=== PATIENT | female | born 1945 | race Caucasian/White ===

== ENCOUNTER 2019-02-26 07:05 | Day surgery (SDC) | payer OTHER, BC ==
--- OUTSIDE RECORDS SUMMARY | 2019-02-26 07:08 | XMS REPORT ---
:1945 Author Organization [facility] Address [address] [place] [address] [address] [address] Care Team Providers Name Role Phone Sridhar Whiteside Unavailable Unavailable Problems This patient has no known problems. Allergies, Adverse Reactions, Alerts This patient has no known allergies or adverse reactions. Medications This patient has no known medications. Encounters Start End Encounter Admission Attending Care Care Encounter Date/Time Date/Time Type Type Clinicians Facility Department ID 2019-02-05 2019-02-05 Outpatient RAVIN Whiteside [id number] 13:16:00 13:16:00 Sridhar
--- OUTSIDE RECORDS SUMMARY | 2019-02-26 07:08 | XMS REPORT | Clinical Summary ---
:1945 Author Organization [facility] Address [address] [place] [address] Care Team Providers Name Role Phone Adam Hilton MD Primary Care Provider Allergies No Known Allergies Medications Medication Sig Dispensed Refills Start Date End Date Status raloxifene (EVISTA) 0 01/11/2017 Active 60 mg tablet omega-3 acid ethyl 0 01/09/2017 Active esters (LOVAZA) 1 gram capsule SYNTHROID 50 mcg 0 10/19/2016 Active tablet ZETIA 10 mg tablet 0 10/19/2016 Active escitalopram 0 01/09/2017 Active (LEXAPRO) 10 MG tablet metoprolol tartrate Take 25 mg by 0 Active (LOPRESSOR) 50 mg mouth daily. tablet pantoprazole Take 1 tablet 90 tablet 3 05/30/2018 05/30/2019 Active (PROTONIX) 40 MG EC (40 mg total) tablet by mouth daily. pantoprazole Take 40 mg by 0 03/23/2018 Discontinued (PROTONIX) 40 MG EC mouth daily. tablet pantoprazole TAKE ONE (1) 90 tablet 03/23/2018 05/30/2018 Discontinued (PROTONIX) 40 MG EC TABLET(S) BY tablet MOUTH EVERY MORNING. pantoprazole Take 1 tablet 30 tablet 2 03/23/2018 05/26/2018 (PROTONIX) 40 MG EC (40 mg total) tablet by mouth daily for 64 days. Active Problems Problem Noted Date Colon polyp GERD (gastroesophageal reflux disease) HH (hiatus hernia) Gastritis Esophageal ulcer Diverticulosis Encounters Date Type Specialty Care Team Description 05/30/2018 Office Visit Gastroenterology Nik Dumont HH (hiatus hernia ) (Primary Dx); MD Maxime Polyp of colon, unspecified part of colon, unspecified type; Diverticulosis of large intestine without hemorrhage; Ulcer of esophagus without bleeding; Gastroesophageal reflux disease with esophagitis; Other chronic gastritis with hemorrhage 05/05/2018 Documentation Gastroenterology Beverly Mejias MA 03/23/2018 Orders Only Gastroenterology Beverly Mejias MA 03/23/2018 Documentation Gastroenterology Beverly Mejias MA 03/22/2018 Refill Gastroenterology Nik Dumont MD after 02/25/2018 Family History Relation Name Status Comments Father Mother Social History Tobacco Use Types Packs/Day Years Used Date Never Smoker Smokeless Tobacco: Never Used Alcohol Use Drinks/Week oz/Week Comments Yes Sex Assigned at Date Recorded Not on file Job Start Date Occupation Industry Not on file Not on file Not on file Travel History Travel Start Travel End No recent travel history available. Last Filed Vital Signs Vital Sign Reading Time Taken Blood Pressure 160/94 05/30/2018 1:14 PM CDT Pulse 60 05/30/2018 1:14 PM CDT Temperature 36.4 C (97.5 F) 05/30/2018 1:14 PM CDT Respiratory Rate - - Oxygen Saturation - - Inhaled Oxygen Concentration - - Weight 59.4 kg (131 lb) 05/30/2018 1:14 PM CDT Height - - Body Mass Index 22.49 05/30/2018 1:14 PM CDT Plan of Treatment Health Maintenance Due Date Last Done Comments BREAST CANCER SCREENING 1994 COLON CANCER SCREENING 1994 SHINGLES VACCINES (#1) 1994 65+ PNEUMOCOCCAL VACCINE (1 of 2 - PCV13) 2009 PNEUMOCOCCAL POLYSACCHARIDE VACCINE AGE 65 AND OVER 2009 INFLUENZA VACCINE 06/07/2019 Results Not on fileafter 02/25/2018 Insurance Payer Benefit Plan / Group Subscriber ID Type Phone Address MEDICARE MEDICARE PART A AND B xxxxxxxxxx Medicare [place], [place] BCBS BCBS CHOICE PPO/[employer]ER[employer] EMPL PPO xxxxxxxxxxxx PPO Advance Directives Patient has advance care planning documents on file. For more information, please contact:Kj [id number] [place] [address]
[2019-02-26] MEDS ORDERED: LIDOCAINE 1% MPF 30 ML VIAL ONE (07:36)
[2019-02-26] MEDS ORDERED: NA CHLORIDE 0.9% 500 ML ONE (07:36)
[2019-02-26] MEDS: PHENYLEPHRINE 10% OPTH 5ML ONE ×3 (07:43→08:03)
[2019-02-26] MEDS: CYCLOPENTOLATE 1% OPTH 2 ML ONE ×3 (07:43→08:03)
[2019-02-26] MEDS ORDERED: DUOVISC 1 KIT OPTH ONE (08:14)
[2019-02-26] MEDS ORDERED: BALANCED SALT IRRIG PLAIN 500 ML BTL IRR ONE (08:14)
[2019-02-26] MEDS ORDERED: EPINEPHRINE/PF 1 MG/ML AMP ONE (08:14)
[2019-02-26] MEDS ORDERED: NS 0.9% VIAL 10 ML ONE (08:14)
[2019-02-26] MEDS ORDERED: MOXIFLOXACIN HCL 10 DROPS/ML **OR USE OPTH ONE (08:14)
[2019-02-26] MEDS: TETRACAINE HCL 0.5% 4ML OPTH ONE ×2 (08:38→09:06)
[2019-02-26] MEDS: LIDOCAINE 2% MPF 5 ML VIAL ONE ×2 (08:38→09:07)
[2019-02-26] MEDS: BUPIVACAINE 0.25% PF 10 ML VIAL ONE ×2 (08:39→09:07)
[2019-02-26] MEDS ORDERED: LIDOCAINE 1% MPF 5 ML VIAL ONE (09:14)
[2019-02-26] MEDS ORDERED: PROPOFOL 200 MG/20 ML VIAL IV ONE (09:14)
--- NOTE | 2019-02-26 09:47 | P.BOP ---
Preoperative diagnosis: Nuclear sclerotic cataract and regular astigmatism OD Postoperative diagnosis: Same Primary procedure: Phacoemulsification with IOL OD Estimated blood loss: None Anesthesia: Local (Subtenon's infusion with anesthesia for cataract surgery) Complications: None Implants: SN6AT3 +21.0 @ 2 degrees Transferred to: Other (Day surgery) Condition: Good
--- NOTE | 2019-02-26 21:06 | OP ---
Date of Procedure: 02/26/2019 Surgeon: Kelly Gomez MD Anesthesiologist: 1. Vaughn Cordao C.R.N.A. 2. Saulo Glover M.D. Preoperative Diagnosis: Nuclear sclerotic cataract, and regular astigmatism, right eye. Operation Performed: Phacoemulsification with toric intraocular lens implant, right eye. Anesthesia: Per cataract surgery. Complications: None. Description Of Procedure: In day surgery, the patient was prepped with Betadine and draped. A conju nctival incision was made in the inferior nasal quadrant with Melanie scissors. A sub-Tenon block c onsisting of a 1:1 mixture of 2% Xylocaine and 0.25% bupivacaine was placed through the conjunctival incision with a blunt cannula. A Honan balloon was placed over the eye and the patient was transferr ed to the operating room. In the operating room the patient was prepped and draped in the usual sterile fashion for ophthalmic surgery. A lid speculum was placed in the right eye. Two paracentesis sites were made superiorly an d inferiorly in the limbal cornea. Viscoat was placed in the anterior chamber and a crescent blade w as used to make a corneal groove and tunnel, and a keratome was used to enter the anterior chamber. Provisc was placed in the anterior chamber and a 360 degree capsulotomy was performed with a cystitom e. The lens was hydrodissected with BSS and rotated freely. The lens was removed with a stop and ch op technique. 10.76 Phaco CDE was used to remove the lens. Residual cortex was removed with the irr igation and aspiration. Provisc was placed in the capsular bag. A SN6AT3 +21.0 at 2 degrees lens wa s placed in the capsular bag without complications. Irrigation and aspiration was used to remove res idual viscoelastic. The paracentesis sites were hydrated with BSS. The wound and paracentesis sites were inspected and found to be watertight. Vigamox 0.07 cc was placed intracamerally at the end of the procedure. The eye was irrigated with balanced salt solution. The eye was patched with a soft c otton patch and Barrera metal shield. The patient was returned to day surgery in good condition. Comments: Discharge Instructions: Ms. Vides is discharged to home in good condition and is to follow up mode Gomez in the morning. DANIEL/FAROOQ Voice ID: [id number] Report ID: [id number]
== END 2019-02-26 10:28 | disposition home or self-care (01) ==
LOC: OR 07:05
PROVIDERS: ATTEND Ophthalmology Retina Specialist
PROC: 08RJ3JZ Replacement of Right Lens with Synthetic Substitute, Percutaneous Approach (ICD-10-PCS; principal; 2019-02-26 09:00)
DX: H25.11 Age-related nuclear cataract, right eye (principal); H52.221 Regular astigmatism, right eye; I10 Essential (primary) hypertension; K21.9 Gastro-esophageal reflux disease without esophagitis; Z79.82 Long term (current) use of aspirin; Z79.899 Other long term (current) drug therapy
CPT/HCPCS: 66984; J2704; J0171